=== PATIENT | male | born 1995 | race Caucasian/White ===

== ENCOUNTER 2023-12-01 18:59 | Emergency (ER) | payer OTHER, BC, SELFPAY ==
[2023-12-01 19:02] VITALS: BP 126/82
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
== END 2023-12-01 20:37 | disposition home or self-care (01) ==
LOC: EMR 18:59
PROVIDERS: EMERGENCY PHYSICIAN Emergency Medicine; FAMILY PHYSICIAN Family Medicine
DX: S50.812A Abrasion of left forearm, initial encounter (principal); V43.52XA Car driver injured in collision with other type car in traffic accident, initial encounter
CPT/HCPCS: 99283; 73090

== ENCOUNTER → 2024-05-06 06:24 | Day surgery (SDC) | payer BC, SELFPAY | LOC: GI 06:24 | PROVIDERS: ATTENDING PHYSICIAN Internal Medicine Gastroenterology | DX: K64.8 Other hemorrhoids (principal) | CPT/HCPCS: 45378 ==